=== PATIENT | male | born 1955 | race Caucasian/White ===

== ENCOUNTER → 2016-03-25 | Outpatient (CLI) | payer OTHER | LOC: FIMAGING 10:11 | PROVIDERS: ATTEND Physician Assistant Medical | DX: Z13.89 Encounter for screening for other disorder (principal) ==

== ENCOUNTER → 2016-04-14 | Outpatient (CLI) | payer OTHER | LOC: FIMAGING 09:59 | PROVIDERS: ATTEND Physician Assistant Medical | DX: Z03.89 Encounter for observation for other suspected diseases and conditions ruled out (principal) ==

== ENCOUNTER → 2016-08-13 | Outpatient (CLI) | payer OTHER | LOC: FIMAGING 10:14 | PROVIDERS: ATTEND Specialist | DX: R31.9 Hematuria, unspecified (principal); Z87.442 Personal history of urinary calculi ==

== ENCOUNTER 2016-10-01 10:28 | Observation (INO) | payer OTHER ==
[2016-10-01] MEDS ORDERED: levOFLOXACIN 500 MG/DEXTROSE 100 ML IV ONE (10:47)
[2016-10-01] MEDS ORDERED: LR 1,000 ML IV ONE (10:53)
[2016-10-01] MEDS ORDERED: LIDOCAINE 1% 2 ML INJ ID PRN (10:53)
--- NOTE | 2016-10-01 13:11 | PDHPUP ---
History & Physical Update H&P update statement: This history and physical update is based on an assessment of the patient which was completed after admission or registration (within 24 hours), but prior to the surgery/procedure. H&P update: no change in patient's condition since H&P completed
[2016-10-01] MEDS ORDERED: LIDOCAINE 2% JELLY 20 ML (UROJECT) ONE (13:28)
[2016-10-01] MEDS ORDERED: MIDAZOLAM 2 MG/2 ML VIAL ONE (13:32)
[2016-10-01] MEDS ORDERED: fentaNYL 100 MCG/2 ML INJ ONE (13:32)
[2016-10-01] MEDS ORDERED: PROPOFOL 200 MG/20 ML VIAL ONE (13:32)
[2016-10-01] MEDS ORDERED: METOCLOPRAMIDE 10 MG/2 ML VIAL ONE (13:39)
[2016-10-01] MEDS ORDERED: ONDANSETRON 4 MG/2 ML VIAL ONE (13:41)
[2016-10-01] MEDS ORDERED: LIDOCAINE 2% JELLY 5 ML TUBE ONE (13:41)
[2016-10-01] MEDS ORDERED: ROCURONIUM 50 MG/5 ML VIAL ONE (14:20)
[2016-10-01] MEDS ORDERED: SUGAMMADEX SODIUM 200 MG/2 ML VIAL IVP ONE (14:30)
[2016-10-01] MEDS ORDERED: NALOXONE HCL 0.4 MG/ML INJ IVP PRN (14:48)
[2016-10-01] MEDS ORDERED: PROMETHAZINE HCL 25 MG/ML INJ IVP PRN ×2 (14:48→15:10)
[2016-10-01] MEDS ORDERED: fentaNYL 100 MCG/2 ML INJ IVP PRN (14:48)
[2016-10-01] MEDS ORDERED: ONDANSETRON 4 MG/2 ML VIAL IVP PRN ×2 (14:48→15:10)
[2016-10-01] MEDS ORDERED: LR 500 ML IV PRN (14:48)
--- NOTE | 2016-10-01 14:48 | PDANEPAE ---
ANE Past Medical History - Cardiovascular History Hx Hypertension: Yes Hx Arrhythmias: No Hx Chest Pain: No Hx Coronary Artery / Peripheral Vascular Disease: No Hx CHF / Valvular Disease: No Hx Palpitations: No Cardiovascular History Comment: pcp monitors bp meds - Pulmonary History Hx COPD: No Hx Asthma/Reactive Airway Disease: No Hx Recent Upper Respiratory Infection: No Hx Oxygen in Use at Home: No Hx Sleep Apnea: No Sleep Apnea Screening Result - Last Documented: Positive Pulmonary History Comment: claudia triggers only - Neurologic History Hx Cerebrovascular Accident: No Hx Seizures: No Hx Dementia: No - Endocrine History Hx Diabetes: Yes Endocrine History Comment: type 2 - Renal History Hx Renal Disorders: Yes Renal History Comment: current bladder tumor. hx of kidney stones. recent cystoscopy - Liver History Hx Hepatic Disorders: No - Neurological & Psychiatric Hx Hx Neurological and Psychiatric Disorders: No - Cancer History Hx Cancer: No - Congenital Disorder History Hx Congenital Disorders: No - GI History Hx Gastrointestinal Disorders: No - Other Health History Other Health History: wears glasses. dermotogist has removed irregular moles - Chronic Pain History Chronic Pain: No - Surgical History Prior Surgeries: kidney stone removal 2010. ear drum surgery- replacement and tubes. tonsillectomy at 4 yo ANE Review of Systems - Exercise capacity METS (RN): 4 METS ANE Patient History - Allergies Allergies/Adverse Reactions: Penicillins Allergy (Verified 09/08/16 10:51) Unknown - Home Medications Home Medications: Aspirin [Aspirin 81mg (*)] 81 mg PO DAILY 09/04/16 [Last Taken 09/08/16] Glimepiride [Amaryl 2 MG (*)] 2 mg PO DAILY 09/04/16 [Last Taken 09/30/16] Herbals/Supplements -Info Only 1 each PO DAILY 09/04/16 [Last Taken 09/17/16] Lisinopril [Zestril 10 mg (*)] 10 mg PO DAILY 09/04/16 [Last Taken 10/01/16 07: 30] Simvastatin [Zocor] 40 mg PO DAILY18 09/04/16 [Last Taken 09/30/16] metFORMIN HCL [Metformin HCl ER] 500 mg PO BIDMEAL 09/04/16 [Last Taken 09/29/16 ] - NPO status NPO Since - Liquids (Date): 10/01/16 NPO Since - Liquids (Time): 07:30 NPO Since - Solids (Date): 09/30/16 NPO Since - Solids (Time): 20:00 - Smoking Hx Smoking Status: Former smoker - Family Anes Hx Family Hx Anesthesia Complications: unknown- adopted ANE Labs/Vital Signs - Vital Signs Blood Pressure: 154/82 Heart Rate: 55 Respiratory Rate: 16 O2 Sat (%): 98 Height: 190.5 cm Weight: 90.718 kg ANE Physical Exam - Airway Neck exam: FROM Mallampati Score: Class 2 - ASA Status ASA Status: II
--- NOTE | 2016-10-01 14:50 | POSTANESTH ---
Post Anesthetic Evaluation Cardiovascular Status: Normal, Stable, Similar to Pre-Op Cond Respiratory Status: Normal, Stable Level of Consciousness/Mental Status: Can Participate in Eval Pain Control: Adequate, Prn Tx Ordered Nausea/Vomiting Control: Adequate, Prn Tx Ordered Complications Possibly Related to Anesthesia: None Noted
--- NOTE | 2016-10-01 15:09 | POSTOPPROG ---
Post Op Note Date of Operation: 10/01/16 Surgeon: Corky Burton (# [id number]) Anesthesia: GET(General Endotracheal) Pre-op Diagnosis: Large bladder tumor Post-op Diagnosis: Large bladder tumor Procedure: TURBT Findings: See op note Inf/Abcess present in the surg proc area at time of surgery?: No EBL: Minimal (< 10 cc) Complications: None Specimen(s): Bladder tumor
[2016-10-01] MEDS ORDERED: ZOLPIDEM TARTRATE 5 MG TAB PO PRN (15:10)
[2016-10-01] MEDS ORDERED: HYDROmorphONE/DILAUDID 1 MG/ML SYR IVP PRN (15:10)
[2016-10-01] MEDS ORDERED: OPIUM/BELLADONNA ALKALO SUPP PR PRN (15:10)
[2016-10-01] MEDS ORDERED: HYDROCODONE/APAP 10/325 TAB PO PRN (15:10)
[2016-10-01] MEDS ORDERED: LIDOCAINE 2% JELLY 5 ML TUBE TP PRN (15:10)
--- NOTE | 2016-10-01 16:02 | GOP ---
[f rep st] OPERATIVE REPORT DATE OF OPERATION: 10/01/2016 SURGEON: Corky Burton MD ANESTHESIA: General endotracheal. PREOPERATIVE DIAGNOSIS: Large bladder tumor. POSTOPERATIVE DIAGNOSIS: Approximately 5 cm left lateral wall bladder tumor. PROCEDURE PERFORMED: Transurethral resection of large bladder tumor. FINDINGS: Large left lateral wall bladder tumor. SPECIMENS: Bladder tumor. ESTIMATED BLOOD LOSS: Minimal. INDICATIONS: This gentleman was found to have a large bladder tumor on recent office cystoscopy. He presents for operative management at this time. The indications for the procedures as well as potential risks and complications were discussed with the patient preoperatively. He appeared to understand, his questions were answered, and he wished to proceed. Written informed surgical consent was thereafter obtained. DESCRIPTION OF PROCEDURE: The patient was brought to the operating room and administered general endotracheal anesthesia. He was carefully placed in the dorsal lithotomy position on the cystoscopic table utilizing Erick stirrups. The genital area was sterilely prepped with Betadine scrub and paint, then draped in usual sterile fashion. Cystoscopy was performed with a 22-[place]ize[place] sheath and 30-degree and 70-degree lenses. Anterior urethra revealed a mildly flow-limiting bulbo-membranous stricture, which I was able to navigate through without performing formal dilation. Posterior urethra revealed mild BPH. Examination of the bladder revealed a [id number] trabeculated mucosal pattern. Along the left lateral wall was an approximately 5 cm papillary bladder tumor with some surrounding satellite lesions. The remainder of the bladder was unremarkable. Scallop Raker photographs were taken and will be placed in the patient's office chart. I then carefully inserted a 26-Belizean resectoscope sheath with a visual obturator and 30-degree lens. The Personera resectoscope with a standard resecting loop was then inserted and bipolar resection of the tumor was performed carefully, taking care not to perforate the bladder and also to resect at least a 1 cm margin of normal bladder tissue around the noted tumor and satellite lesions. All the tissue was evacuated from the bladder and sent to Pathology for histologic examination. A button electrode was then inserted to cauterize the base of the resected tumor as well as the surrounding tissue for local tumor control purposes. At the conclusion of the surgery, the operative site was hemostatic, no gross perforation of the bladder had ensued as a result of the operative process, and all abnormal tissue had been removed from the bladder. An 18-Belizean 3-way Cho catheter was inserted and connected to continuous irrigation. The catheter irrigated manually at the end of the case and the return was light pink. The catheter was connected to bag drainage. The patient was then awakened, extubated, transferred to his bed, and taken to the recovery room. He tolerated the procedure well overall. COMPLICATIONS: None. DISPOSITION: He was transferred to the recovery room in stable condition. He will be admitted overnight for continuous bladder irrigation to minimize the risk of postoperative clot urinary retention. /[id number]/MODL MTDD
[2016-10-01] MEDS ORDERED: PARAMETERS MISC PRN (16:04)
[2016-10-01] MEDS ORDERED: D50W 25 GM/50 ML SYR IVP PRN (16:04)
[2016-10-01] MEDS: INSULIN REGULAR HUMAN 100 UNIT/ML SC SCH ×2 (16:42→21:28)
[2016-10-01] MEDS: NS 1,000 ML IV SCH (17:08)
[2016-10-01] MEDS: metFORMIN SR 500 MG TAB PO SCH (17:24)
[2016-10-01] MEDS ORDERED: ATORVASTATIN CALCIUM 20 MG TAB PO SCH (18:00)
[2016-10-01 23:39] VITALS: TEMP 98.3
[2016-10-02] MEDS: NS 1,000 ML IV SCH (02:50)
[2016-10-02] MEDS: metFORMIN SR 500 MG TAB PO SCH (07:56)
[2016-10-02] MEDS: INSULIN REGULAR HUMAN 100 UNIT/ML SC SCH ×2 (08:05→13:22)
[2016-10-02 08:40] VITALS: BP 146/69; PULSE 86; RESP 18; O2SAT 97
[2016-10-02] MEDS ORDERED: LISINOPRIL 10 MG TAB PO SCH (09:00)
[2016-10-02] MEDS ORDERED: GLIMEPIRIDE 2 MG TAB PO SCH (09:00)
[2016-10-02] MEDS ORDERED: HYDROCODONE/APAP 5/325 TAB PO PRN (10:09)
--- NOTE | 2016-10-02 10:57 | GDS ---
[f rep st] DISCHARGE SUMMARY PREOP AND POSTOP DIAGNOSIS: Bladder neoplasm. BRIEF HISTORY OF PRESENT ILLNESS: This is a pleasant 61-year-old gentleman, who was evaluated in ou r office, and found to have a bladder tumor of concerning etiology. After a discussion of his options, he elected to undergo a TURBT. He had a transurethral resection of the bladder tumor done yesterday with Dr. Burton. Underwent this procedure without difficulty. He is being discharged home in good condition , is to keep his Cho catheter in place until Wednesday morning, at which point it will be removed in our office. The patient is being discharged home with 5 [place] to use for pain, and is being disc harged home in good condition. /[id number]/MODL
== END 2016-10-02 13:19 | disposition home or self-care (01) ==
LOC: F3E 10:28 → F1N 12:16
PROVIDERS: ADMIT Specialist; ATTEND Specialist
PROC: 0TBB8ZZ Excision of Bladder, Via Natural or Artificial Opening Endoscopic (ICD-10-PCS; principal; 2016-10-01 11:45)
DX: C67.2 Malignant neoplasm of lateral wall of bladder (principal)
CPT/HCPCS: 52240; G0378; J1956; J2250; J2405; J2704; J2765; J3010